=== PATIENT | female | born 1970 | race Two or more races ===

== ENCOUNTER 2016-04-30 23:53 | Emergency (ER) | payer SELFPAY ==
--- NOTE | 2016-05-01 00:04 | EDPHY ---
H & P Time Seen by Provider: 04/30/16 23:57 HPI/ROS: CHIEF COMPLAINT: Medical clearance for [facility] HISTORY OF PRESENT ILLNESS: Patient is a 45-year-old female who is brought to the emergency department by police for medical clearance. Police state that the daughter says the patient and her were in an argument when the patient fell and hit her head on the ground and was unconscious for about a minute. The patient denies this. She has no signs of injury. She denies headache or neck pain. She has been drinking tonight but is able to ambulate and answer questions appropriately and is not inebriated. she denies having any significant metal call complaints or injuries pain. REVIEW OF SYSTEMS: Constitutional: denies: chills, fever, recent illness, recent injury EENTM: denies: blurred vision, double vision, nose congestion Respiratory: denies: cough, shortness of breath Cardiac: denies: chest pain, irregular heart rate, lightheadedness, palpitations Gastrointestinal/Abdominal: denies: abdominal pain, diarrhea, nausea, vomiting, blood streaked stools Genitourinary: denies: dysuria, frequency, hematuria, pain Musculoskeletal: denies: joint pain, muscle pain Skin: denies: lesions, rash, jaundice, bruising Neurological: See HPI Hematologic/Lymphatic: denies: blood clots, easy bleeding, easy bruising Immunologic/allergic: denies: HIV/AIDS, transplant EXAM: GENERAL: Well-appearing, well-nourished and in no acute distress. HEAD: Atraumatic, normocephalic. no visible abrasions or hematomas EYES: Pupils equal round and reactive to light, extraocular movements intact, sclera anicteric, conjunctiva are normal. ENT: TMs normal, nares patent, oropharynx clear without exudates. Moist mucous membranes. NECK: Normal range of motion, supple without lymphadenopathy or JVD. LUNGS: Breath sounds clear to auscultation bilaterally and equal. No wheezes rales or rhonchi. HEART: Regular rate and rhythm without murmurs, rubs or gallops. ABDOMEN: Soft, nontender, normoactive bowel sounds. No guarding, no rebound. No masses appreciated. BACK: No CVA tenderness, no spinal tenderness, step-offs or deformities EXTREMITIES: Normal range of motion, no pitting or edema. No clubbing or cyanosis. NEUROLOGICAL: Cranial nerves II through XII grossly intact. Normal speech, normal gait. 5/5 strength, normal movement in all extremities, normal sensation PSYCH: Normal mood, normal affect. SKIN: Warm, dry, normal turgor, no visible rashes or lesions. Source: Patient, Police Exam Limitations: Language barrier (Professional marker shipments used) - Medical/Surgical History Hx Asthma: Yes Hx Chronic Respiratory Disease: No Hx Diabetes: No Hx Cardiac Disease: No Hx Renal Disease: No Hx Cirrhosis: No Hx Alcoholism: No Hx HIV/AIDS: No Hx Splenectomy or Spleen Trauma: No Other PMH: PSH: ;. PMH: asthma; kidney stones - Family History Significant Family History: No pertinent family hx - Social History Smoking Status: Never smoked Alcohol Use: Occasionally Drug Use: None Constitutional: Initial Vital Signs Temperature (C) 37 C 05/01/16 00:06 Heart Rate 91 05/01/16 00:06 Respiratory Rate 14 05/01/16 00:06 Blood Pressure 134/74 H 05/01/16 00:06 O2 Sat (%) 96 05/01/16 00:06 O2 Delivery Mode Room Air Allergies/Adverse Reactions: No Known Allergies Allergy (Unverified 05/01/16 00:05) Home Medications: Medication Instructions Recorded NK [No Known Home Meds] 05/01/16 Medical Decision Making ED Course/Re-evaluation: The patient denies having any symptoms currently. She denies hitting her head or losing consciousness. She is currently as the capacity to answer questions and dictate her medical care. Differential Diagnosis: Partial list of the Differential diagnosis considered include but were not limited to; head injury, concussion, intoxication and although unlikely based on the history and physical exam, I also considered infection, substance abuse. I discussed these differential diagnoses and the plan with the patient as well as the usual and expected course. The patient understands that the diagnosis is provisional and that in medicine we are not always correct and that further workup is often warranted. Usual and customary warnings were given. All of the patient's questions were answered. The patient was instructed to return to the emergency department should the symptoms at all worsen or return, otherwise to followup with the physician as we discussed. Departure - Departure Disposition: Home, Routine, Self-Care Clinical Impression: Intoxication Condition: Fair Instructions: Alcohol Intoxication (ED) Additional Instructions: Patient is medically cleared for [facility] Referrals: Diane Joseph MD [Medical Doctor] - As per Instructions
[2016-05-01 00:08] VITALS: BP 134/74; PULSE 91; RESP 14; TEMP 98.6; O2SAT 96
== END 2016-05-01 00:15 | disposition home or self-care (01) ==
DX: F10.229 Alcohol dependence with intoxication, unspecified (principal); J45.909 Unspecified asthma, uncomplicated